=== PATIENT | male | born 1935 | race American Indian/Alaskan Native ===

== ENCOUNTER 2018-07-17 11:44 | Day surgery (SDC) | payer OTHER ==
[2018-07-17] MEDS ORDERED: NACL 0.9% 1000 ML 1,000 ML IV SCH (13:00)
--- NOTE | 2018-07-17 13:12 | Anesthesia Day of Surgery ---
Anesthesia Day of Surgery - Day of Surgery Patient Examined: Yes Patient H&P Reviewed: Yes Patient is NPO: Yes
--- NOTE | 2018-07-17 13:16 | Anesthesia Consultation ---
Anesthesia Consult and Med Hx Date of service: 07/17/18 - Airway Anesthetic Teeth Evaluation: Poor ROM Head & Neck: Adequate Mental/Hyoid Distance: Adequate Mallampati Class: Class II Intubation Access Assessment: Probably Good - Pre-Operative Health Status ASA Pre-Surgery Classification: ASA3 Proposed Anesthetic Plan: MAC - Pulmonary Hx Smoking: Yes (quit 30 yrs ago) Hx Asthma: Yes SOB: Yes COPD: Yes (bronchitis, partial left lung removed) Home Oxygen Therapy: Yes (2 liters at night) Hx Pneumonia: Yes - Central Nervous System Hx Neuromuscular Disorder: Yes (migraines/headache) Hx Back Pain: Yes
[2018-07-17] MEDS ORDERED: DIPRIVAN 10 MG/ML IV ONE (15:53)
[2018-07-17] MEDS ORDERED: WATER FOR IRRIG STERILE ONE (16:20)
[2018-07-17] MEDS ORDERED: WATER FOR IRRIG STERILE IR ONE (16:20)
--- NOTE | 2018-07-17 16:52 | Operative Report ---
Operative Report Operative Report: Procedure: Colonoscopy with Hot Biopsy Polypectomy. Attending physician: Alejo Schmidt MD Composite Bond Technician: Alejo Schmidt MD Indication: Patient is a 82-year-old male who presents for colonoscopy to evaluate abdominal pain and constipation. A colonoscopy serves to evaluate patient so that treatment may be directed based on the findings. Consent: Informed consent was obtained after advising the patient and family regarding nature of this procedure, its indications, potential benefits as well as possible complications including but not limited to bleeding perforation and adverse reaction to medication, infection as well as other cardiopulmonary complications. An informed written and verbal consent was then obtained after due opportunity was provided for questions and answers. Monitoring: Patient was monitored continuously with pulse oximetry and electrocardiographic recordings as well as blood pressure recordings. Vital signs remained stable throughout this procedure with no untoward events. Preoperative assessment: Patient was assessed immediately prior to this procedure for capacity to tolerate monitored anesthesia care and moderate sedation as well as general anesthesia. Patient's ASA classification is 2, Mallampati class is 2, Hyomental distance is 3. Instrument: [employer] video colonoscope Medications: Propofol given intravenously in divided doses. For details please refer to anesthesia records. Description of procedure: Patient was placed in the left lateral decubitus posit ion after achieving sedation, a digital rectal examination was performed following which the colonoscope was introduced into the anal verge and advanced to the cecum which was identified by the ileocecal valve, the appendiceal orifice, as well as by the cecal strap and direct transillumination. The colonoscope was subsequently withdrawn with careful inspection of all mucosal surfaces. Patient tolerated this procedure well and was subsequently taken to the recovery room. The following findings were noted. Findings: The preparation was poor with substantial retained stool seen in various sections of the colon. In the hepatic flexure, patient had a diminutive 4-5 mm polyp which was remarkable biopsy polypectomy. In the descending colon, patient had another diminutive polyp removed using the hot biopsy polypectomy. The rest of the colon was normal except for substantial retained stool in every section of the colon. On the retroflex view at the anal verge, patient had internal hemorrhoids and hypertrophied anal papilla. Impression: Hepatic flexure polyp status post hot biopsy polypectomy. Descending colon polyp status post hot biopsy polypectomy. Retained stool Internal hemorrhoids. Plan: Follow the pathology report High-fiber diet. Prn stool softeners. Repeat colonoscopy in 1 year to due to retained stool.
--- NOTE | 2018-07-17 17:14 | Discharge Summary ---
Short Stay Discharge Plan Weight Bearing Status: Weight Bear as Tolerated Diet: regular Additional Instructions: Post Sedation D/C Instructions When you return home you may resume your regular diet unless otherwise directed. -Go directly home from the hospital and rest quietly. You may resume normal activities tomorrow. -Do NOT drive, return to work, operate any machinery or make any important personal or business decisions today. -Do NOT drink any alcohol or take nerve or sleeping drugs. They add to the effects of the medicine still present in your body. FOLLOW UP WITH DR. PITT IN 1-2 WEEKS FOR RESULT OF TODAY'S BIOPSIES AND VISIT Follow up with: KRUNAL VERDUGO MD [Primary Care Provider] - 7 Days
[2018-07-17 17:37] VITALS: BP 102/57
== END 2018-07-17 11:45 | disposition home or self-care (01) ==
LOC: GIO 11:44
PROVIDERS: ATTEND Internal Medicine Gastroenterology
DX: K63.5 Polyp of colon (principal); K64.8 Other hemorrhoids; J44.9 Chronic obstructive pulmonary disease, unspecified; M19.90 Unspecified osteoarthritis, unspecified site; Z79.899 Other long term (current) drug therapy; Z79.82 Long term (current) use of aspirin; Z87.891 Personal history of nicotine dependence; Z98.890 Other specified postprocedural states
CPT/HCPCS: 45380; 45384; 88305; J2704; J7030